=== PATIENT | male | born 1970 | race African-American/Black ===

== ENCOUNTER 2021-04-04 20:55 | Emergency (ER) | payer SELFPAY ==
[~2021-04-04] VITALS: Ht 177.8 cm; Wt 121.0 kg
[2021-04-04] MEDS ORDERED: ONDANSETRON 4MG ODT PO STA (22:35)
[2021-04-04] MEDS ORDERED: MAGNESIUM/ALUMINUM HYDROXIDE/SIMETHICONE 30ML UDC PO STA (22:35)
[2021-04-04] MEDS ORDERED: HYDROCODONE/ACETAMINOPHEN 5/325MG TABLET PO STA (22:35)
[2021-04-04 23:08] LABS: BASOPHILS % 1.1 % (0.0-2.0); EOSINOPHILS % 1.9 % (0.0-5.0); HEMATOCRIT. 46.6 % (42.0-52.0); HEMOGLOBIN. 15.2 g/dL (14.0-18.0); MEAN CORPUSCULAR HEMOGLOBIN 23.7 pg (28.0-32.0); MEAN CORPUSCULAR VOLUME 72.8 fL (80.0-94.0); MEAN PLATELET VOLUME 7.9 fl (7.4-10.4); MONOCYTES % 5.8 % (2.0-8.0); NEUTROPHILS % 47.2 % (40.0-76.0); PLATELET 251 x1000/uL (130-400); RED CELL DISTRIBUTION WIDTH 17.6 % (11.6-14.6)
[2021-04-04 23:15] LABS: CHLORIDE 108 mEq/L (98-107)
[2021-04-05] MEDS ORDERED: IBUP-2029 MT (01:33)
[2021-04-05 02:26] VITALS: BP 135/54
== END 2021-04-05 02:00 | disposition home or self-care (01) ==
LOC: ER 21:21
DX: K80.80 Other cholelithiasis without obstruction (principal); E11.9 Type 2 diabetes mellitus without complications; I10 Essential (primary) hypertension
CPT/HCPCS: 36415; 76705; 80053; 83690; 85025; 99284; Q0162

== ENCOUNTER 2021-05-08 09:06 | Emergency (ER) | payer MEDICAID ==
[~2021-05-08] VITALS: Ht 175.3 cm; Wt 120.0 kg
[~2021-05-08 09:06] MED LIST: IBUP-2029 MT
[2021-05-08] MEDS ORDERED: ONDANSETRON HCL 4MG/2ML INJ IV STA (09:26)
[2021-05-08] MEDS ORDERED: SODIUM CHLORIDE 0.9% 1,000 ML IV ONE (09:30)
[2021-05-08 09:45] LABS: EOSINOPHILS % 1.1 % (0.0-5.0); HEMATOCRIT. 49.5 % (42.0-52.0); HEMOGLOBIN. 15.8 g/dL (14.0-18.0); LYMPHOCYTES % 33.8 % (20.0-50.0); MEAN CORPUSCULAR HEMOGLOBIN 23.5 pg (28.0-32.0); MEAN CORPUSCULAR VOLUME 73.7 fL (80.0-94.0); MEAN PLATELET VOLUME 8.3 fl (7.4-10.4); MONOCYTES % 5.7 % (2.0-8.0); NEUTROPHILS % 58.4 % (40.0-76.0); PLATELET 243 x1000/uL (130-400); RED BLOOD CELL COUNT 6.72 mill/uL (4.7-6.1); RED CELL DISTRIBUTION WIDTH 16.5 % (11.6-14.6)
[2021-05-08] MEDS ORDERED: ONDA4TAB5 PO (11:13)
[2021-05-08 11:21] VITALS: BP 152/67
== END 2021-05-08 11:22 | disposition home or self-care (01) ==
LOC: ER 09:08
DX: R11.2 Nausea with vomiting, unspecified (principal); E11.9 Type 2 diabetes mellitus without complications; I10 Essential (primary) hypertension; Z90.49 Acquired absence of other specified parts of digestive tract
CPT/HCPCS: 36415; 85025; 93005; 96374; 99284; J2405; J7030

== ENCOUNTER 2021-09-23 02:14 | Emergency (ER) | payer MEDICAID, OTHER ==
[~2021-09-23] VITALS: Ht 172.7 cm; Wt 127.0 kg
[~2021-09-23 02:14] MED LIST changes: +ONDA4TAB5 PO
[2021-09-23] MEDS ORDERED: MORPHINE SULFATE 4 MG/ML CPJ (NOT FOR IM USE) IV STA (02:25)
[2021-09-23] MEDS ORDERED: ONDANSETRON HCL 4MG/2ML INJ IV STA (02:25)
[2021-09-23] MEDS ORDERED: SODIUM CHLORIDE 0.9% 1,000 ML IV ONE (02:30)
[2021-09-23 02:45] LABS: BASOPHILS % 1.3 % (0.0-2.0); EOSINOPHILS % 0.8 % (0.0-5.0); HEMOGLOBIN. 14.6 g/dL (14.0-18.0); LYMPHOCYTES % 37.5 % (20.0-50.0); MEAN CORPUSCULAR HEMOGLOBIN 22.4 pg (28.0-32.0); MEAN CORPUSCULAR VOLUME 70.5 fL (80.0-94.0); MEAN PLATELET VOLUME 8.5 fl (7.4-10.4); NEUTROPHILS % 53.4 % (40.0-76.0); PLATELET 235 x1000/uL (130-400); RED BLOOD CELL COUNT 6.53 mill/uL (4.7-6.1); RED CELL DISTRIBUTION WIDTH 18.6 % (11.6-14.6)
[2021-09-23 03:07] LABS: CHLORIDE 111 mEq/L (98-107)
[2021-09-23] MEDS ORDERED: IOHEXOL-300 100 ML BOTTLE ONE (04:08)
[2021-09-23] MEDS ORDERED: HYDR25TA MT (04:18)
[2021-09-23 04:25] LABS: CLARITY URINE CLEAR (CLEAR); COLOR URINE YELLOW (YELLOW); KETONES URINE NEGATIVE (NEGATIVE); LEUKOCYTE ESTERASE URINE NEGATIVE (NEGATIVE); NITRITE URINE NEGATIVE (NEGATIVE); OCCULT BLOOD URINE NEGATIVE (NEGATIVE); PROTEIN URINE 2+ (NEGATIVE); SPECIFIC GRAVITY URINE 1.026 (1.005-1.030)
[2021-09-23 04:27] VITALS: BP 161/126
[2021-09-29] MEDS ORDERED: CARV6.2548 PO (22:46)
[2021-09-29] MEDS ORDERED: FURO20TA4 PO (22:46)
== END 2021-09-23 04:35 | disposition home or self-care (01) ==
LOC: ER 02:14
DX: R10.9 Unspecified abdominal pain (principal); R18.8 Other ascites; R79.89 Other specified abnormal findings of blood chemistry; I11.0 Hypertensive heart disease with heart failure; I50.9 Heart failure, unspecified; E11.9 Type 2 diabetes mellitus without complications; R74.01 Elevation of levels of liver transaminase levels; F17.210 Nicotine dependence, cigarettes, uncomplicated; Z71.6 Tobacco abuse counseling; Z90.49 Acquired absence of other specified parts of digestive tract
CPT/HCPCS: 36415; 74177; 80053; 81003; 83605; 83690; 85025; 96361; 96374; 96375; 99285; J2270; J2405; J7030; Q9967

== ENCOUNTER 2022-11-26 06:52 | Emergency (ER) | payer OTHER, MEDICAID ==
[~2022-11-26] VITALS: Ht 175.3 cm; Wt 130.9 kg
[~2022-11-26 06:52] MED LIST changes: +CARV6.2548 PO; +FURO20TA4 PO; +HYDR25TA MT
[2022-11-26] MEDS ORDERED: HYDR25TA MT (09:15)
[2022-11-26] MEDS ORDERED: FURO-152 MT (09:15)
[2022-11-26 10:16] VITALS: BP 141/76
== END 2022-11-26 10:17 | disposition home or self-care (01) ==
LOC: ER 07:15
DX: I10 Essential (primary) hypertension (principal); Z76.0 Encounter for issue of repeat prescription; I11.0 Hypertensive heart disease with heart failure; I50.9 Heart failure, unspecified; E11.9 Type 2 diabetes mellitus without complications; Z90.49 Acquired absence of other specified parts of digestive tract; Z79.899 Other long term (current) drug therapy; F12.10 Cannabis abuse, uncomplicated
CPT/HCPCS: 71045; 93005; 99283

== ENCOUNTER 2022-12-04 19:54 | Inpatient (IN) | payer OTHER ==
[~2022-12-04] VITALS: Ht 175.3 cm; Wt 126.1 kg
[~2022-12-04 19:54] MED LIST changes: +FURO-152 MT
[2022-12-04 21:14] LABS: EOSINOPHILS % 2.6 % (0.0-5.0); HEMATOCRIT. 44.1 % (42.0-52.0); LYMPHOCYTES % 37.5 % (20.0-50.0); MEAN CORPUSCULAR HEMOGLOBIN 23.5 pg (28.0-32.0); MEAN CORPUSCULAR VOLUME 73.9 fL (80.0-94.0); MEAN PLATELET VOLUME 7.7 fl (7.4-10.4); MONOCYTES % 6.2 % (2.0-8.0); NEUTROPHILS % 52.7 % (40.0-76.0); PLATELET 203 x1000/uL (130-400); RED BLOOD CELL COUNT 5.97 mill/uL (4.7-6.1); RED CELL DISTRIBUTION WIDTH 15.4 % (11.6-14.6)
[2022-12-04 21:23] LABS: CHLORIDE 105 mEq/L (98-107)
[2022-12-04 21:24] LABS: INR 1.2; PARTIAL THROMBOPLASTIN TIME 25.9 sec (23.4-31.0); PROTHROMBIN TIME 12.5 sec (9.6-11.0)
[2022-12-05 01:24] LABS: CLARITY URINE CLEAR (CLEAR); COLOR URINE YELLOW (YELLOW); KETONES URINE NEGATIVE (NEGATIVE); LEUKOCYTE ESTERASE URINE NEGATIVE (NEGATIVE); NITRITE URINE NEGATIVE (NEGATIVE); OCCULT BLOOD URINE NEGATIVE (NEGATIVE); PROTEIN URINE 2+ (NEGATIVE); SPECIFIC GRAVITY URINE 1.022 (1.005-1.030)
[2022-12-05] MEDS ORDERED: ASPIRIN 325MG TABLET PO ONE (01:45)
[2022-12-05] MEDS ORDERED: NITROGLYCERIN OINT 1GM/INCH UDPKT TD ONE (01:45)
[2022-12-05] MEDS ORDERED: FUROSEMIDE 40MG/4ML VIAL IV NR (02:00)
[2022-12-05] MEDS ORDERED: ENALAPRIL 1.25MG/ML VIAL 1ML IV NR (03:30)
[2022-12-05] MEDS: HYDRALAZINE 20MG/ML VIAL IV PRN ×2 (06:19→13:48)
[2022-12-05 09:10] VITALS: BP 182/129
[2022-12-05] MEDS ORDERED: FURO20TA4 MT (09:21)
[2022-12-05] MEDS ORDERED: METF-874 MT (09:21)
[2022-12-05] MEDS: CLONIDINE 0.2MG TABLET PO PRN (09:33)
[2022-12-05] MEDS ORDERED: DIATR MEGLU/DIATRIZOATE SOLN 30ML PO SCH (10:15)
[2022-12-05 10:20] VITALS: BP 148/98
[2022-12-05 12:00] VITALS: BP 164/110
[2022-12-05] MEDS ORDERED: FUROSEMIDE 40MG/4ML VIAL IVP SCH (13:00)
[2022-12-05] MEDS ORDERED: ACETAMINOPHEN 325MG TABLET PO PRN (15:05)
[2022-12-05] MEDS: AMLODIPINE 10MG TABLET PO SCH (15:13)
[2022-12-05] MEDS ORDERED: IPRATROPIUM/ALBUTEROL 0.5-3(2.5)MG/3ML NEB HHN PRN (15:15)
[2022-12-05 16:00] VITALS: BP 160/104
[2022-12-05] MEDS ORDERED: IOHEXOL-300 100 ML BOTTLE ONE (19:37)
[2022-12-05 20:00] VITALS: BP 139/94
[2022-12-05 21:29] LABS: HEPATITIS B SURFACE ANTIGEN NEGATIVE
[2022-12-05] MEDS: HYDRALAZINE HCL 50MG TABLET PO SCH (21:35)
[2022-12-06] VITALS: BP 132/90
[2022-12-06 04:00] VITALS: BP 170/107
[2022-12-06] MEDS: CLONIDINE 0.2MG TABLET PO PRN (04:39)
[2022-12-06 06:07] VITALS: BP 158/89
[2022-12-06] MEDS ORDERED: FUROSEMIDE 40MG/4ML VIAL IVP SCH (07:15)
[2022-12-06 08:00] VITALS: BP 144/109
[2022-12-06] MEDS: AMLODIPINE 10MG TABLET PO SCH (08:33)
[2022-12-06] MEDS: HYDRALAZINE HCL 50MG TABLET PO SCH (08:33)
[2022-12-06] MEDS ORDERED: HYDR100T26 MT (11:52)
[2022-12-06] MEDS ORDERED: FURO-151 MT (11:52)
[2022-12-06 12:00] VITALS: BP 117/92
[2022-12-06] MEDS ORDERED: FLUT1DIS3 INH (12:40)
[2022-12-06] MEDS ORDERED: METF-414 MT (12:40)
[2022-12-06] MEDS ORDERED: AMLO10TA80 PO (12:40)
[2022-12-06] MEDS ORDERED: ALBU18HF2 IH (12:40)
[2022-12-06 13:33] VITALS: BP 117/92
== END 2022-12-06 15:24 | disposition home or self-care (01) | DRG 194 ==
LOC: ER 20:52 → MICUSO 12-05 03:38 → EDBEDREQ 12-05 03:39 → 7WST 12-05 08:55
PROVIDERS: ADMIT Internal Medicine; ATTEND Internal Medicine
DX: I11.0 Hypertensive heart disease with heart failure (principal); J96.90 Respiratory failure, unspecified, unspecified whether with hypoxia or hypercapnia; N17.9 Acute kidney failure, unspecified; E44.1 Mild protein-calorie malnutrition; I50.23 Acute on chronic systolic (congestive) heart failure; E11.9 Type 2 diabetes mellitus without complications; E66.9 Obesity, unspecified; F17.210 Nicotine dependence, cigarettes, uncomplicated; J44.9 Chronic obstructive pulmonary disease, unspecified; Z79.899 Other long term (current) drug therapy; Z91.199 Patient's noncompliance with other medical treatment and regimen due to unspecified reason; Z90.49 Acquired absence of other specified parts of digestive tract; Z68.41 Body mass index [BMI] 40.0-44.9, adult
CPT/HCPCS: 36415; 71045; 74177; 80053; 81003; 82962; 83036; 83880; 84484; 85025; 86803; 87340; 93005; 93306; 99285; J0360; J1940; J3490; Q9967

== ENCOUNTER 2024-02-11 05:58 | Inpatient (IN) | payer SELFPAY ==
[~2024-02-11] VITALS: Ht 175.3 cm; Wt 102.1 kg
[~2024-02-11 05:58] MED LIST changes: +ALBU18HF2 IH; +AMLO10TA80 PO; +FLUT1DIS3 INH; +FURO-151 MT; +FURO20TA4 MT; -FURO20TA4 PO; +HYDR100T26 MT; -HYDR25TA MT; +METF-414 MT; +METF-874 MT
[2024-02-11 08:44] LABS: BASOPHILS % 0.9 % (0.0-2.0); DIFFERENTIAL COMMENT 0; EOSINOPHILS % 1.7 % (0.0-5.0); HEMATOCRIT. 46.2 % (42.0-52.0); HEMOGLOBIN. 14.6 g/dL (14.0-18.0); LYMPHOCYTES % 31.1 % (20.0-50.0); MEAN CORPUSCULAR HEMOGLOBIN 23.4 pg (28.0-32.0); MEAN CORPUSCULAR HGB CONC 31.6 g/dL (31.0-37.0); MEAN CORPUSCULAR VOLUME 73.9 fL (80.0-94.0); MEAN PLATELET VOLUME 7.8 fl (7.4-10.4); MONOCYTES % 5.3 % (2.0-8.0); PLATELET 215 x1000/uL (130-400); RED BLOOD CELL COUNT 6.24 mill/uL (4.7-6.1); RED CELL DISTRIBUTION WIDTH 16.8 % (11.6-14.6); WHITE BLOOD COUNT 5.1 x1000/uL (4.5-11.0)
[2024-02-11 08:50] LABS: CHLORIDE 107 mEq/L (98-107); POTASSIUM 3.4 mEq/L (3.5-5.1); SODIUM 141 mEq/L (136-145)
[2024-02-11 08:51] LABS: CARBON DIOXIDE 25 mEq/L (21-32)
[2024-02-11 08:52] LABS: CALCIUM 8.9 mg/dL (8.7-10.4)
[2024-02-11 08:56] LABS: CREATININE 1.2 mg/dL (0.6-1.3)
[2024-02-11 08:57] LABS: GLUCOSE 114 mg/dL (70-105); UREA NITROGEN BLOOD 14 mg/dL (9-23)
[2024-02-11 08:58] LABS: ALANINE AMINOTRANSFERASE 78 IU/L (10-49); ALBUMIN 3.7 g/dL (3.2-4.8); ASPARTATE AMINOTRANSFERASE 69 IU/L (<34); TROPONIN I HIGH SENSITIVITY 30 ng/L (3.0-53)
[2024-02-11 08:59] LABS: BILIRUBIN DIRECT 0.3 mg/dL (<=3.0); BILIRUBIN TOTAL 0.8 mg/dL (0.1-1.0); PROTEIN TOTAL 6.1 g/dL (6.0-8.3)
[2024-02-11] MEDS: ASPIRIN 325MG EC TABLET PO ONE (10:20)
[2024-02-11] MEDS: NITROGLYCERIN 0.4MG TABLET SL SL ONE (10:20)
[2024-02-11] MEDS: CLONIDINE 0.1MG TABLET PO PRN (23:53)
[2024-02-12] MEDS ORDERED: FUROSEMIDE 40MG/4ML VIAL IV SCH (05:00)
[2024-02-12] MEDS ORDERED: FUROSEMIDE 40MG/4ML VIAL ONE (05:09)
[2024-02-12 08:45] VITALS: BP 155/80; PULSE 68; RESP 20; TEMP 97.7
[2024-02-12] MEDS ORDERED: ONDANSETRON HCL 4MG/2ML INJ IV PRN (10:45)
[2024-02-12] MEDS ORDERED: ACETAMINOPHEN 325MG TABLET PO PRN (10:45)
[2024-02-12 11:35] VITALS: BP 179/121; PULSE 72; RESP 19; TEMP 98
[2024-02-12] MEDS: ASPIRIN 81MG TABLET PO SCH (11:37)
[2024-02-12] MEDS: LOSARTAN 50 MG TABLET PO SCH (11:38)
[2024-02-12] MEDS: CARVEDILOL 12.5MG TABLET PO SCH (11:38)
[2024-02-12] MEDS: FUROSEMIDE 40MG/4ML VIAL IVP SCH (11:38)
[2024-02-12 13:15] VITALS: BP 158/99
[2024-02-12] MEDS: HYDRALAZINE HCL 50MG TABLET PO NR (13:15)
[2024-02-12 13:37] LABS: TROPONIN I HIGH SENSITIVITY 30 ng/L (3.0-53)
[2024-02-12] MEDS ORDERED: FURO-151 MT (13:51)
[2024-02-12] MEDS ORDERED: COR12 PO (13:51)
[2024-02-12] MEDS ORDERED: FLUT1DIS3 INH (13:51)
[2024-02-12] MEDS ORDERED: HYDR50TA39 PO (13:51)
[2024-02-12] MEDS ORDERED: POTA-205 MT (13:51)
[2024-02-12] MEDS ORDERED: LOSA50TA41 PO (13:51)
[2024-02-12 14:42] VITALS: BP 158/99; PULSE 72; TEMP 98; O2SAT 98
[2024-02-12 16:00] VITALS: BP 159/85; PULSE 74; RESP 20; TEMP 98.4
[2024-02-12] MEDS ORDERED: HYDRALAZINE HCL 50MG TABLET PO SCH (21:00)
== END 2024-02-12 19:00 | disposition home or self-care (01) | DRG 203 ==
LOC: ER 06:09 → 5WST 11:40 → 8WST 02-12 09:16
PROVIDERS: ADMIT Internal Medicine; ATTEND Internal Medicine
DX: R07.89 Other chest pain (principal); I11.0 Hypertensive heart disease with heart failure; I50.9 Heart failure, unspecified; E11.9 Type 2 diabetes mellitus without complications; J44.9 Chronic obstructive pulmonary disease, unspecified; Z91.148 Patient's other noncompliance with medication regimen for other reason; Z79.899 Other long term (current) drug therapy
CPT/HCPCS: 36415; 71045; 80048; 80076; 82962; 83880; 84484; 85025; 93005; 99285; J1940

== ENCOUNTER 2024-05-17 18:45 | Emergency (ER) | payer MEDICAID ==
[~2024-05-17] VITALS: Ht 175.3 cm; Wt 114.0 kg
[~2024-05-17 18:45] MED LIST changes: -ALBU18HF2 IH; -AMLO10TA80 PO; -CARV6.2548 PO; +COR12 PO; -FURO-152 MT; -FURO20TA4 MT; -HYDR100T26 MT; +HYDR50TA39 PO; +LOSA50TA41 PO; -METF-414 MT; -METF-874 MT; +POTA-205 MT
[2024-05-17 18:52] VITALS: O2SAT 100
[2024-05-17] MEDS ORDERED: FURO-151 MT (19:11)
[2024-05-17] MEDS ORDERED: HYDR50TA39 PO (19:11)
[2024-05-17] MEDS ORDERED: LOSA50TA41 PO (19:11)
[2024-05-17] MEDS ORDERED: COR12 PO (19:11)
[2024-05-17] MEDS ORDERED: POTA-205 MT (19:11)
[2024-05-17 20:41] LABS: BASOPHILS % 0.8 % (0.0-2.0); DIFFERENTIAL COMMENT 0; EOSINOPHILS % 2.7 % (0.0-5.0); HEMATOCRIT. 45.1 % (42.0-52.0); HEMOGLOBIN. 14.3 g/dL (14.0-18.0); LYMPHOCYTES % 32.2 % (20.0-50.0); MEAN CORPUSCULAR HGB CONC 31.8 g/dL (31.0-37.0); MEAN CORPUSCULAR VOLUME 75.5 fL (80.0-94.0); MONOCYTES % 6.1 % (2.0-8.0); NEUTROPHILS % 58.2 % (40.0-76.0); PLATELET 185 x1000/uL (130-400); RED BLOOD CELL COUNT 5.97 mill/uL (4.7-6.1); RED CELL DISTRIBUTION WIDTH 16.7 % (11.6-14.6); WHITE BLOOD COUNT 4.9 x1000/uL (4.5-11.0)
[2024-05-17 20:47] LABS: CHLORIDE 106 mEq/L (98-107); POTASSIUM 3.8 mEq/L (3.5-5.1); SODIUM 140 mEq/L (136-145)
[2024-05-17 20:48] LABS: CALCIUM 9.1 mg/dL (8.7-10.4); CARBON DIOXIDE 30 mEq/L (21-32)
[2024-05-17 20:53] LABS: CREATININE 1.4 mg/dL (0.6-1.3); GLUCOSE 106 mg/dL (70-105); TROPONIN I HIGH SENSITIVITY 19 ng/L (3.0-53); UREA NITROGEN BLOOD 10 mg/dL (9-23)
[2024-05-17] MEDS: FUROSEMIDE 40MG TABLET PO NR (20:54)
[2024-05-17 21:00] VITALS: BP 142/87; PULSE 79; RESP 16; TEMP 36.94740; O2SAT 100
== END 2024-05-17 21:27 ==
LOC: ER 18:45
DX: Z76.0 Encounter for issue of repeat prescription (principal); I10 Essential (primary) hypertension; N17.9 Acute kidney failure, unspecified
CPT/HCPCS: 36415; 71045; 80048; 84484; 85025; 93005; 99285

== ENCOUNTER 2024-12-13 20:35 | Emergency (ER) | payer MEDICAID ==
[~2024-12-13] VITALS: Ht 172.7 cm; Wt 108.0 kg
[2024-12-13 21:09] VITALS: O2SAT 100
[2024-12-13 21:11] VITALS: BP 157/108; PULSE 84; RESP 18; O2SAT 100
[2024-12-13] MEDS ORDERED: POTA-205 MT (22:23)
[2024-12-13] MEDS ORDERED: HYDR50TA39 PO (22:23)
[2024-12-13] MEDS ORDERED: FURO-151 MT (22:23)
[2024-12-13] MEDS ORDERED: COR12 PO (22:23)
[2024-12-13] MEDS ORDERED: LOSA50TA41 PO (22:23)
[2024-12-13] MEDS: FUROSEMIDE 40MG TABLET PO ONE (22:25)
== END 2024-12-13 22:50 | disposition home or self-care (01) ==
LOC: ER 20:35
DX: Z76.0 Encounter for issue of repeat prescription (principal); E11.9 Type 2 diabetes mellitus without complications; I11.0 Hypertensive heart disease with heart failure; I50.9 Heart failure, unspecified; Z79.899 Other long term (current) drug therapy; Z98.890 Other specified postprocedural states
CPT/HCPCS: 99283